=== PATIENT | female | born 1945 ===

== ENCOUNTER 2019-06-22 11:31 | Outpatient (CLI) | payer OTHER ==
[~2019-06-22 11:31] MED LIST: AMBIEN10 MG PO; CALTRATE 600600 MG; CIPRO750 MG PO; Colace 100MG PO; HYZAAR 50/12.51 TAB; NEURONTIN PO; PERCOCET 5/3251 TAB PO; VITAMIN D1000 UNIT
== END 2019-06-22 15:55 | disposition home or self-care (01) ==
LOC: RAD 11:31
DX: M54.5 Low back pain (principal); M54.16 Radiculopathy, lumbar region; M43.26 Fusion of spine, lumbar region